=== PATIENT | male | born 2000 | race Two or more races ===

== ENCOUNTER → 2020-06-01 15:00 | Outpatient (CLI) | payer OTHER | END | disposition home or self-care (01) | LOC: PPH VACUNA 15:00 | DX: Z23 Encounter for immunization (principal) ==

== ENCOUNTER → 2020-06-22 14:09 | Outpatient (CLI) | payer OTHER | END | disposition home or self-care (01) | LOC: PPH VACUNA 14:09 | DX: Z23 Encounter for immunization (principal) ==